=== PATIENT | female | born 1970 | race Caucasian/White ===

== ENCOUNTER 2022-03-27 12:12 | Emergency (ER) | payer MEDICAID ==
[~2022-03-27] VITALS: Ht 172.7 cm; Wt 76.4 kg
[2022-03-27] MEDS ORDERED: BUSP15 PO (12:55)
[2022-03-27] MEDS ORDERED: CLON-595 PO (12:55)
[2022-03-27] MEDS ORDERED: DIVA-80 PO ×2 (12:55)
[2022-03-27] MEDS ORDERED: CITA-144 PO (12:55)
[2022-03-27] MEDS ORDERED: PredniSONE 20 MG TABLET PO ONE (15:00)
[2022-03-27 15:34] LABS: ANION GAP 9 mmol/L (8-16); CALCIUM, TOTAL 8.5 mg/dL (8.8-10.5); CARBON DIOXIDE 26 mmol/L (22-29); CHLORIDE 104 mmol/L (98-107); CREATININE 0.58 mg/dL (0.60-1.30); GLUCOSE,RANDOM 94 mg/dL (70-110); POTASSIUM 3.8 mmol/L (3.5-5.1); SODIUM SERUM 139 mmol/L (136-145); UREA NITROGEN, BLOOD 16 mg/dL (7-18)
[2022-03-27 15:43] LABS: GLOMERULAR FILTR. RATE CALC > 60 mL/min (>60)
[2022-03-27 15:49] LABS: APPEARANCE,URINE CLEAR (CLEAR); BILIRUBIN,URINE NEGATIVE (NEGATIVE); GLUCOSE, URINE (UA) NEGATIVE (NEGATIVE); KETONES,URINE NEGATIVE (NEGATIVE); LEUKOCYTE ESTERASE ,URINE NEGATIVE (NEGATIVE); NITRATE,URINE NEGATIVE (NEGATIVE); OCCULT BLOOD,URINE NEGATIVE (NEGATIVE); PH,URINE 6.5 (5.0-8.0); PROTEIN,URINE NEGATIVE (NEGATIVE); SPECIFIC GRAVITIY, URINE 1.009 (1.003-1.030); UROBILINOGEN,URINE <=1.0 mg/dL (<=1.0)
[2022-03-27 15:59] LABS: ALANINE AMINOTRANSFERASE 25 U/L (12-78); ALBUMIN 3.2 g/dL (3.4-5.0); ALKALINE PHOSPHATASE 69 U/L (46-116); ASPARTATE AMINOTRANSFERASE 20 U/L (15-37); BILIRUBIN,TOTAL 0.1 mg/dL (0.1-1.0); CREATINE KINASE, TOTAL ONLY 108 U/L (26-192); TOTAL PROTEIN, SERUM 6.5 g/dL (6.4-8.2)
[2022-03-27] MEDS ORDERED: IPRATROPIUM BROMIDE 0.5 MG/2.5 ML NEB SOLUTION NEB ONE (16:15)
[2022-03-27] MEDS ORDERED: ALBUTEROL SULFATE 2.5 MG/0.5 ML NEB SOLUTION NEB ONE (16:15)
[2022-03-27] MEDS ORDERED: ACETAMINOPHEN 500 MG TABLET PO ONE (16:15)
[2022-03-27] MEDS ORDERED: KETOROLAC TROMETHAMINE 30 MG/ML VIAL IM ONE (17:00)
[2022-03-27] MEDS ORDERED: PRED-554 PO (17:06)
[2022-03-27] MEDS ORDERED: AZIT250T9 PO (17:06)
[2022-03-27] MEDS ORDERED: CYCL-448 PO (17:07)
[2022-03-27 17:17] VITALS: BP 131/74
== END 2022-03-27 17:19 | disposition home or self-care (01) ==
LOC: EMS 12:15
DX: J40 Bronchitis, not specified as acute or chronic (principal); F41.9 Anxiety disorder, unspecified; F31.9 Bipolar disorder, unspecified; I10 Essential (primary) hypertension; F17.210 Nicotine dependence, cigarettes, uncomplicated
CPT/HCPCS: 36415; 71045; 80053; 81003; 82550; 84484; 85379; 93005; 94640; 96372; 99285; J1885; J7512; 99283; J7613

== ENCOUNTER 2022-05-19 00:13 | Emergency (ER) | payer MEDICAID ==
[~2022-05-19] VITALS: Ht 172.7 cm; Wt 79.0 kg
[~2022-05-19 00:13] MED LIST: AZIT250T9 PO; BUSP15 PO; CITA-144 PO; CLON-595 PO; CYCL-448 PO; DIVA-80 PO; PRED-554 PO
[2022-05-19] MEDS ORDERED: SODIUM CHLORIDE 0.9% 1,000 ML IV ONE ×2 (01:00→01:15)
[2022-05-19] MEDS ORDERED: MORPHINE SULFATE 4 MG/ML SYRINGE IVP ONE (01:15)
[2022-05-19 01:26] LABS: BASOPHILS % (AUTO) 1.4 % (0.0-2.0); EOSINOPHILS % (AUTO) 1.3 % (1.0-6.0); HEMATOCRIT 36.3 % (36-46); HEMOGLOBIN 12.6 g/dL (12.0-16.0); LYMPHOCYTES # (AUTO) 1.8 K/uL (1.0-4.8); LYMPHOCYTES % (AUTO) 19.8 % (22.0-44.0); MEAN CORPUSCULAR HEMOGLOBIN 30.8 pg (26.0-34.0); MEAN CORPUSCULAR HGB CONC 34.6 G/dL (31.0-37.0); MEAN CORPUSCULAR VOLUME 89 fL (80-100); MONOCYTES # (AUTO) 0.8 K/uL (0.1-1.0); MONOCYTES % (AUTO) 9.4 % (2.0-9.0); NEUTROPHILS # (AUTO) 6.2 K/uL (1.8-7.7); NEUTROPHILS % (AUTO) 68.1 % (40.0-70.0); PLATELET COUNT (AUTO) 294 K/uL (150-450); RED BLOOD CELL COUNT(AUTO) 4.08 MIL/uL (4.00-5.20); RED CELL DISTRIBUTION WIDTH 14.9 % (11.5-14.5)
[2022-05-19 01:42] LABS: ALANINE AMINOTRANSFERASE 37 U/L (12-78); ALKALINE PHOSPHATASE 70 U/L (46-116); ANION GAP 10 mmol/L (8-16); ASPARTATE AMINOTRANSFERASE 29 U/L (15-37); BILIRUBIN,TOTAL 0.3 mg/dL (0.1-1.0); CALCIUM, TOTAL 9.9 mg/dL (8.8-10.5); CARBON DIOXIDE 27 mmol/L (22-29); CHLORIDE 105 mmol/L (98-107); CREATININE 0.84 mg/dL (0.60-1.30); GLUCOSE,RANDOM 95 mg/dL (70-110); POTASSIUM 3.5 mmol/L (3.5-5.1); SODIUM SERUM 142 mmol/L (136-145); TOTAL PROTEIN, SERUM 7.3 g/dL (6.4-8.2); UREA NITROGEN, BLOOD 27 mg/dL (7-18)
[2022-05-19 01:45] LABS: GLOMERULAR FILTR. RATE CALC > 60 mL/min (>60)
[2022-05-19 01:57] LABS: PROTHROMBIN TIME 10.2 SEC (9.4-11.6)
[2022-05-19] MEDS ORDERED: SODIUM CHLORIDE 0.9% 100 ML ONE (01:58)
[2022-05-19] MEDS ORDERED: IOHEXOL 350 MG/ML 100 ML VIAL ONE (01:58)
[2022-05-19 01:59] LABS: B-TYPE NATRIURETIC PEPTIDE 21 pg/mL (0-100)
[2022-05-19 03:24] LABS: APPEARANCE,URINE CLEAR (CLEAR); BILIRUBIN,URINE NEGATIVE (NEGATIVE); GLUCOSE, URINE (UA) NEGATIVE (NEGATIVE); KETONES,URINE NEGATIVE (NEGATIVE); LEUKOCYTE ESTERASE ,URINE TRACE (NEGATIVE); NITRATE,URINE NEGATIVE (NEGATIVE); OCCULT BLOOD,URINE NEGATIVE (NEGATIVE); PROTEIN,URINE TRACE mg/dL (NEGATIVE); UROBILINOGEN,URINE <=1.0 mg/dL (<=1.0)
[2022-05-19 03:27] LABS: SPECIFIC GRAVITIY, URINE > 1.050 (1.003-1.030)
[2022-05-19] MEDS ORDERED: KETOROLAC TROMETHAMINE 30 MG/ML VIAL IVP ONE (03:30)
[2022-05-19 03:34] LABS: BACTERIA,URINE None Seen /HPF (None Seen); RBC,URINE 0-2 /HPF (0-2); SQUAMOUS EPITHELIAL CELL,UR Rare /LPF (None Seen)
[2022-05-19 03:57] VITALS: BP 158/92
[2022-05-19] MEDS ORDERED: POLY17PO47 PO (05:04)
== END 2022-05-19 05:12 | disposition home or self-care (01) ==
LOC: EMS 00:14
DX: R10.31 Right lower quadrant pain (principal); K59.00 Constipation, unspecified; F41.9 Anxiety disorder, unspecified; J45.909 Unspecified asthma, uncomplicated; F31.9 Bipolar disorder, unspecified; I10 Essential (primary) hypertension; F17.210 Nicotine dependence, cigarettes, uncomplicated
CPT/HCPCS: 99285; 74177; 96374; 71045; 96361; 96375; 80053; 81001; 83880; 84484; 85025; 85610; 85730; 36415; 93005; J1885; J2270; Q9967; J7030; J7050

== ENCOUNTER 2022-05-20 16:45 | Inpatient (IN) | payer MEDICAID ==
[~2022-05-20] VITALS: Ht 172.7 cm; Wt 82.6 kg
[~2022-05-20 16:45] MED LIST changes: +POLY17PO47 PO
[2022-05-20 17:39] LABS: COVID AG,FIA SOURCE NASOPHARYNGEAL
[2022-05-20 18:01] LABS: AMPHET/METH SCREEN,URINE POSITIVE (NEGATIVE); BARBITURATE SCREEN, URINE NEGATIVE (NEGATIVE); BENZODIAZEPINES SCREEN,URINE NEGATIVE (NEGATIVE); CANNABINOID SCREEN,URINE NEGATIVE (NEGATIVE); COCAINE SCREEN,URINE POSITIVE (NEGATIVE); METHADONE SCREEN, URINE NEGATIVE (NEGATIVE); OPIATE SCREEN,URINE NEGATIVE (NEGATIVE)
[2022-05-20 18:02] LABS: PHENCYCLIDINE SCREEN,URINE NEGATIVE (NEGATIVE)
[2022-05-20 18:03] LABS: APPEARANCE,URINE CLEAR (CLEAR); BILIRUBIN,URINE NEGATIVE (NEGATIVE); GLUCOSE, URINE (UA) NEGATIVE (NEGATIVE); KETONES,URINE 40-60 mg/dL (NEGATIVE); LEUKOCYTE ESTERASE ,URINE MODERATE (NEGATIVE); NITRATE,URINE NEGATIVE (NEGATIVE); OCCULT BLOOD,URINE NEGATIVE (NEGATIVE); PH,URINE 5.5 (5.0-8.0); PROTEIN,URINE TRACE mg/dL (NEGATIVE); SPECIFIC GRAVITIY, URINE 1.027 (1.003-1.030); UROBILINOGEN,URINE <=1.0 mg/dL (<=1.0)
[2022-05-20 18:26] LABS: BACTERIA,URINE Few /HPF (None Seen); RBC,URINE None Seen /HPF (0-2)
[2022-05-20] MEDS ORDERED: HALOPERIDOL LACTATE 5 MG/ML VIAL IM ONE (18:45)
[2022-05-20] MEDS ORDERED: LORazepam 2 MG/ML VIAL IM ONE (18:45)
[2022-05-20] MEDS ORDERED: DiphenhydrAMINE HCL 50 MG/ML VIAL IM ONE (18:45)
[2022-05-20 20:10] LABS: BASOPHILS % (AUTO) 1.2 % (0.0-2.0); HEMOGLOBIN 11.7 g/dL (12.0-16.0); LYMPHOCYTES % (AUTO) 25.5 % (22.0-44.0); MEAN CORPUSCULAR HEMOGLOBIN 30.5 pg (26.0-34.0); MEAN CORPUSCULAR HGB CONC 34.5 G/dL (31.0-37.0); MEAN CORPUSCULAR VOLUME 88 fL (80-100); MONOCYTES # (AUTO) 0.7 K/uL (0.1-1.0); MONOCYTES % (AUTO) 9.1 % (2.0-9.0); NEUTROPHILS # (AUTO) 4.8 K/uL (1.8-7.7); NEUTROPHILS % (AUTO) 60.2 % (40.0-70.0); PLATELET COUNT (AUTO) 257 K/uL (150-450); RED BLOOD CELL COUNT(AUTO) 3.84 MIL/uL (4.00-5.20); RED CELL DISTRIBUTION WIDTH 14.5 % (11.5-14.5)
[2022-05-20 20:19] LABS: ANION GAP 9 mmol/L (8-16); CALCIUM, TOTAL 9.1 mg/dL (8.8-10.5); CARBON DIOXIDE 25 mmol/L (22-29); CHLORIDE 105 mmol/L (98-107); CREATININE 0.79 mg/dL (0.60-1.30); GLUCOSE,RANDOM 133 mg/dL (70-110); POTASSIUM 3.6 mmol/L (3.5-5.1); SODIUM SERUM 139 mmol/L (136-145); UREA NITROGEN, BLOOD 26 mg/dL (7-18)
[2022-05-20 20:23] LABS: GLOMERULAR FILTR. RATE CALC > 60 mL/min (>60)
[2022-05-20 20:25] LABS: ALANINE AMINOTRANSFERASE 48 U/L (12-78); ALBUMIN 3.6 g/dL (3.4-5.0); ALKALINE PHOSPHATASE 78 U/L (46-116); ASPARTATE AMINOTRANSFERASE 75 U/L (15-37); BILIRUBIN,TOTAL 0.7 mg/dL (0.1-1.0); TOTAL PROTEIN, SERUM 6.9 g/dL (6.4-8.2)
[2022-05-20 20:26] LABS: VALPROIC ACID < 3 mcg/mL (50-100)
[2022-05-20 21:59] VITALS: BP 121/63
[2022-05-21 08:00] VITALS: BP 125/68
[2022-05-21] MEDS: LORazepam 2 MG TABLET PO PRN (08:09)
[2022-05-21] MEDS: HALOPERIDOL 5 MG TABLET PO PRN (08:11)
[2022-05-21] MEDS ORDERED: BENZOCAINE/MENTHOL LOZENGE PO PRN (09:30)
[2022-05-21] MEDS ORDERED: LOPERAMIDE HCL 2 MG CAPSULE PO PRN (09:30)
[2022-05-21] MEDS ORDERED: BACITRACIN 28 GM OINTMENT TP PRN (09:30)
[2022-05-21] MEDS ORDERED: PETROLATUM,WHITE 28 GM JELLY TP PRN (09:30)
[2022-05-21] MEDS ORDERED: ACETAMINOPHEN 325 MG TABLET PO PRN (09:30)
[2022-05-21] MEDS ORDERED: OMEPRAZOLE 20 MG CAPSULE PO PRN (09:30)
[2022-05-21] MEDS ORDERED: DOCUSATE SODIUM 100 MG CAPSULE PO PRN (09:30)
[2022-05-21] MEDS ORDERED: ALBUTEROL SULFATE HFA 90 MCG/PUFF 8 GM INHALER IH PRN (09:30)
[2022-05-21] MEDS ORDERED: ONDANSETRON HCL 4 MG TABLET PO PRN (09:30)
[2022-05-21] MEDS ORDERED: CloNIDine HCL 0.1 MG TABLET PO PRN (09:30)
[2022-05-21] MEDS ORDERED: MAGNESIUM HYDROXIDE SUSPENSION 30 ML UDCUP PO PRN (09:30)
[2022-05-21] MEDS ORDERED: MAG HYDROX/AL HYDROX/SIMETH ES 30 ML SUSPENSION UDCUP PO PRN (09:30)
[2022-05-21] MEDS: CEPHALEXIN MONOHYDRATE 500 MG CAPSULE PO SCH ×2 (09:53→17:13)
[2022-05-21 16:32] VITALS: BP 126/74
[2022-05-21] MEDS: DIVALPROEX SODIUM 250 MG DR TABLET PO SCH (20:33)
[2022-05-22 04:29] VITALS: BP 123/76
[2022-05-22 05:42] VITALS: BP 137/77
[2022-05-22] MEDS: LORazepam 2 MG TABLET PO PRN ×3 (05:45→16:00)
[2022-05-22 07:50] LABS: CHOL/HDL RATIO 2.8 (3.9-5.7); FREE T4 (FREE THYROXINE) 1.31 ng/dL (0.76-1.46); THYROID STIMULATING HORMONE 1.23 uIU/mL (0.36-3.74)
[2022-05-22] MEDS: LACTOBAC ACID/BULG/BIFID/THERM TABLET PO SCH (09:00)
[2022-05-22] MEDS: DIVALPROEX SODIUM 250 MG DR TABLET PO SCH ×2 (09:00→20:14)
[2022-05-22] MEDS: CEPHALEXIN MONOHYDRATE 500 MG CAPSULE PO SCH ×2 (11:48→16:00)
[2022-05-22 15:56] VITALS: BP 138/76
[2022-05-22 20:00] VITALS: BP 130/75
[2022-05-22] MEDS: ZOLPIDEM TARTRATE 10 MG TABLET PO PRN (20:14)
[2022-05-23] MEDS: LORazepam 2 MG TABLET PO PRN ×5 (00:48→15:56)
[2022-05-23] MEDS: HALOPERIDOL 5 MG TABLET PO PRN ×4 (02:03→17:00)
[2022-05-23] MEDS: CEPHALEXIN MONOHYDRATE 500 MG CAPSULE PO SCH ×2 (08:14→16:40)
[2022-05-23] MEDS: DIVALPROEX SODIUM 250 MG DR TABLET PO SCH ×2 (08:14→20:07)
[2022-05-23] MEDS: LACTOBAC ACID/BULG/BIFID/THERM TABLET PO SCH (08:47)
[2022-05-23 09:05] VITALS: BP 145/80
[2022-05-23] MEDS: IBUPROFEN 600 MG TABLET PO PRN (12:39)
[2022-05-23] MEDS: NICOTINE 21 MG/24 HOUR PATCH TD PRN (16:11)
[2022-05-23] MEDS: ZOLPIDEM TARTRATE 10 MG TABLET PO PRN (20:08)
[2022-05-24] MEDS: IBUPROFEN 600 MG TABLET PO PRN (05:39)
[2022-05-24] MEDS: DIVALPROEX SODIUM 250 MG DR TABLET PO SCH ×2 (08:24→20:28)
[2022-05-24] MEDS: HALOPERIDOL 5 MG TABLET PO PRN (08:24)
[2022-05-24] MEDS: CEPHALEXIN MONOHYDRATE 500 MG CAPSULE PO SCH ×2 (08:24→17:27)
[2022-05-24] MEDS: LORazepam 2 MG TABLET PO PRN ×2 (08:24→14:05)
[2022-05-24] MEDS: LACTOBAC ACID/BULG/BIFID/THERM TABLET PO SCH (08:24)
[2022-05-24 10:15] VITALS: BP 160/99
[2022-05-24] MEDS: ZOLPIDEM TARTRATE 10 MG TABLET PO PRN (20:28)
[2022-05-24 20:37] VITALS: BP 145/91
[2022-05-25] MEDS: IBUPROFEN 600 MG TABLET PO PRN (05:27)
[2022-05-25 05:30] VITALS: BP 136/87
[2022-05-25 05:55] VITALS: BP 137/88
[2022-05-25] MEDS: NICOTINE 21 MG/24 HOUR PATCH TD PRN (06:30)
[2022-05-25] MEDS: LORazepam 2 MG TABLET PO PRN (07:18)
[2022-05-25] MEDS: LACTOBAC ACID/BULG/BIFID/THERM TABLET PO SCH (08:13)
[2022-05-25] MEDS: DIVALPROEX SODIUM 250 MG DR TABLET PO SCH (08:13)
[2022-05-25] MEDS: CEPHALEXIN MONOHYDRATE 500 MG CAPSULE PO SCH (08:13)
[2022-05-25 09:19] VITALS: BP 152/90
[2022-05-25] MEDS ORDERED: LIDOCAINE 5% TRANSDERMAL PATCH TD SCH (11:00)
[2022-05-25] MEDS ORDERED: DIVA-111 PO ×4 (12:15→13:31)
[2022-05-25] MEDS ORDERED: CEPH-558 PO (12:18)
[2022-05-25] MEDS ORDERED: ACID1TAB13 PO (12:19)
[2022-05-25] MEDS ORDERED: -LIDODERM PATCH NOTE- MISC SCH (21:00)
== END 2022-05-25 18:29 | disposition home or self-care (01) | DRG 750 ==
LOC: EMS 16:52 → B3A 19:38
PROVIDERS: ADMIT Psychiatry & Neurology Psychiatry; ATTEND Psychiatry & Neurology Psychiatry
DX: F25.9 Schizoaffective disorder, unspecified (principal); R45.851 Suicidal ideations; F41.9 Anxiety disorder, unspecified; G47.00 Insomnia, unspecified; I10 Essential (primary) hypertension; J45.909 Unspecified asthma, uncomplicated; K59.00 Constipation, unspecified; F17.210 Nicotine dependence, cigarettes, uncomplicated; F19.10 Other psychoactive substance abuse, uncomplicated; N39.0 Urinary tract infection, site not specified; Z59.00 Homelessness unspecified
CPT/HCPCS: 80053; 80061; 80164; 81001; 84439; 84443; 85025; 87086; 99291; G0480; J1200; J1630; J2060